=== PATIENT | female | born 1980 | race Caucasian/White ===

== ENCOUNTER 2017-12-11 07:51 | Day surgery (SDC) | payer MEDICARE, MEDICAID ==
[~2017-12-11] VITALS: Ht 157.5 cm; Wt 49.8 kg
[2017-12-11] VITALS (8 sets, daily range): BP systolic 135–150; BP diastolic 95–105
[~2017-12-11 07:51] MED LIST: ACET-1025 PO; BENZ0.5T3 PO; BENZOYL PEROXIDE TOP; BISA10SU21; CALC1CAP20 PO; CHLO500C10 PO; CLON-528 PO; COL100C PO; ESCI10TA45 PO; IBUP-1984 PO; IBUP-812 PO; LEVO1TAB33 PO; MAGN400O6 PO; POLY17PO10 PO; QUET-1 PO; RISP2TAB97 PO; VAL5T PO; [UNRECOGNIZED DRUG - OTHER]; famotidine/PF 10 mg/ml inj IV ONE; ringers solution, lacted 1,000 ML IV SCH
[2017-12-11] MEDS ORDERED: diazepam 5mg tablet PO ONE (09:11)
[2017-12-11] MEDS ORDERED: ketamine 50 mg/ml 10ml vial IV ONE (10:13)
[2017-12-11] MEDS ORDERED: MIDAZolam 5mg/ml 2ml vial ONE (11:17)
[2017-12-11] MEDS ORDERED: fentaNYL/PF 50MCG/1 ML 2ML syringe ONE (12:13)
[2017-12-11] MEDS ORDERED: dexamethasone sod phosphate 4mg/ml inj. ONE (12:20)
[2017-12-11] MEDS ORDERED: ondansetron/PF 4mg/2ml inj ONE (12:20)
[2017-12-11] MEDS ORDERED: rocuronium 10mg/ml inj IV ONE (12:20)
[2017-12-11] MEDS ORDERED: ringers solution, lacted 1,000 ML IV SCH (12:34)
[2017-12-11] MEDS ORDERED: ondansetron/PF 4mg/2ml inj IV PRN (12:35)
[2017-12-11] MEDS ORDERED: proCHLORperazine 10 MG/2 ml inj IV PRN (12:35)
[2017-12-11] MEDS ORDERED: fentaNYL/PF 50MCG/1 ML 2ML syringe IV PRN ×2 (12:35)
[2017-12-11] MEDS ORDERED: meperidine/PF 25mg/ml syringe IV ONE (12:35)
[2017-12-11] MEDS ORDERED: morphine 2 MG/ML inj. syringe IV PRN ×2 (12:35)
[2017-12-11] MEDS ORDERED: oxymetazoline 15 ML nasal spray NS ONE (13:25)
== END 2017-12-11 13:48 | disposition home or self-care (01) ==
LOC: PAS 07:51
PROVIDERS: ATTEND Dentist
DX: K02.9 Dental caries, unspecified (principal); F84.0 Autistic disorder
CPT/HCPCS: 21899; J1100; J2250; J2405; J3010; J3490; J7120; A7000